=== PATIENT | male | born 1965 | race Caucasian/White ===

== ENCOUNTER 2020-11-16 02:34 | Emergency (ER) | payer OTHER ==
[2020-11-16] MEDS ORDERED: OXYMETAZOLINE 0.05% NASL SPRAY 1 SPRAY BOTTLE NASAL STA (02:39)
[2020-11-16 02:43] VITALS: RESP 16; TEMP 97.8
[2020-11-16] MEDS ORDERED: TRANEXAMIC ACID 1,000 MG in SODIUM CHLORIDE 0.9% 100 ML IVPB ONE (03:02)
[2020-11-16 03:33] LABS: Basophils % (A) 0 %; Eosinophils # (A) 0.1 k/uL (0-0.7); Eosinophils % (A) 1 %; HCT 31.5 % (39.0-53.0); HGB 10.8 gm/dL (13.0-17.5); Lymphocytes # (A) 1.8 k/uL (1.0-4.8); Lymphocytes % (A) 21 %; MCHC 34.3 g/dL (31.0-37.0); MCV 96.1 fL (80.0-100.0); Mean Platelet Volume 8.1; Monocytes # (A) 0.6 k/uL (0-1.0); Monocytes % (A) 7 %; Neutrophils # (A) 6.2 k/uL (1.3-7.7); Neutrophils % (A) 70 %; Platelet Count 248 k/uL (150-450); RBC 3.28 m/uL (4.30-5.90); RDW 13.1 % (11.5-15.5); WBC 8.9 k/uL (3.8-10.6)
[2020-11-16 03:44] LABS: African American GFR (CKD) >90 (>60 ml/min/1.73 sqM); Anion Gap 6 mmol/L; Blood Urea Nitrogen 12 mg/dL (9-20); Carbon Dioxide 24 mmol/L (22-30); Chloride 107 mmol/L (98-107); Glucose 116 mg/dL (74-99); Non-African American GFR(CKD) >90 (>60 ml/min/1.73 sqM); Potassium 3.7 mmol/L (3.5-5.1); Sodium 137 mmol/L (137-145)
[2020-11-16 03:45] LABS: INR 0.9 (<1.2); Partial Thromboplastin Time 22.4 sec (22.0-30.0); Prothrombin Time 9.8 sec (9.0-12.0)
--- NOTE | 2020-11-16 03:53 | ED ---
ENT HPI - General Chief complaint: ENT Stated complaint: Nosebleed Time Seen by Provider: 11/16/20 02:39 Source: patient, EMS Mode of arrival: EMS Limitations: no limitations - History of Present Illness Initial comments: This patient has a 54-year-old man who presents to be evaluated for epistaxis. The patient has had issues related to epistaxis going back couple of weeks with some intermittent small episodes. 2 days ago he had a more sustained episode, went to an urgent care, where he reportedly had cautery. The bleeding recurred and then was referred to one of the [facility] emergency departments where he had a balloon tamponade placed. This controlled the bleeding, but it did recur a couple of hours ago. The patient tried to stop things with pressure but it continued to bleed. He states that all of the bleeding was coming anterior to the balloon. He has only had bleeding from the right naris. There is no posterior bleeding. Patient denies symptoms of anemia. MD complaint: epistaxis -: days(s) Location: nose Severity: moderate Severity scale (1-10): 0 Consistency: constant Improves with: none Worsens with: none - Related Data Previous Rx's Medication Instructions Recorded cloNIDine HCL [Catapres] 0.1 mg PO Q8H #9 tab 11/16/20 Allergies Allergy/AdvReac Type Severity Reaction Status Date / Time No Known Allergies Allergy Verified 11/16/20 03:10 Review of Systems ROS Statement: Those systems with pertinent positive or pertinent negative responses have been documented in the HPI. ROS Other: All systems not noted in ROS Statement are negative. Constitutional: Denies: fever, chills, weakness Eyes: Denies: eye pain ENT: Reports: epistaxis Respiratory: Denies: cough, dyspnea Cardiovascular: Denies: chest pain, palpitations, orthopnea, syncope Gastrointestinal: Denies: abdominal pain, nausea, vomiting Neurological: Denies: headache, weakness Hematological/Lymphatic: Denies: easy bleeding General Exam Limitations: no limitations General appearance: alert, in no apparent distress Head exam: Present: atraumatic, normocephalic Eye exam: Present: normal appearance. Absent: scleral icterus, conjunctival injection ENT exam: Present: normal oropharynx, mucous membranes moist, other (Balloon tamponade on the right naris. No active bleeding) Respiratory exam: Present: normal lung sounds bilaterally. Absent: respiratory distress, wheezes, rales, rhonchi, stridor Cardiovascular Exam: Present: regular rate, normal rhythm, normal heart sounds. Absent: systolic murmur, diastolic murmur, rubs, gallop Neurological exam: Present: alert Skin exam: Present: warm, dry, intact, normal color. Absent: rash Course Vital Signs 11/16/20 11/16/20 11/16/20 02:35 03:54 07:54 Temperature 97.8 F Pulse Rate 92 91 89 Respiratory 16 16 16 Rate Blood Pressure 134/94 138/90 139/79 O2 Sat by Pulse 96 96 99 Oximetry Medical Decision Making - Medical Decision Making The patient did have resolution of bleeding just prior to arrival in the emergency department. When I see the patient, there is a rapid Rhino balloon that is intact in the right naris. There is no posterior bleeding. Given that the patient has had a number of bleeds in recent days blood counts are checked and are not significantly different than the labs he had yesterday which showed hemoglobin of 11. Patient is observed with no recurrence and stable for discharge with follow-up ENT physician - Lab Data Result diagrams: 11/16/20 03:24 11/16/20 03:24 Lab Results 11/16/20 11/16/20 11/16/20 Range/Units 03:24 03:24 03:24 WBC 8.9 (3.8-10.6) k/uL RBC 3.28 L (4.30-5.90) m/uL Hgb 10.8 L (13.0-17.5) gm/dL Hct 31.5 L (39.0-53.0) % MCV 96.1 (80.0-100.0) fL MCH 33.0 (25.0-35.0) pg MCHC 34.3 (31.0-37.0) g/dL RDW 13.1 (11.5-15.5) % Plt Count 248 (150-450) k/uL MPV 8.1 Neutrophils % 70 % Lymphocytes % 21 % Monocytes % 7 % Eosinophils % 1 % Basophils % 0 % Neutrophils # 6.2 (1.3-7.7) k/uL Lymphocytes # 1.8 (1.0-4.8) k/uL Monocytes # 0.6 (0-1.0) k/uL Eosinophils # 0.1 (0-0.7) k/uL Basophils # 0.0 (0-0.2) k/uL PT 9.8 (9.0-12.0) sec INR 0.9 (<1.2) APTT 22.4 (22.0-30.0) sec Sodium 137 (137-145) mmol/L Potassium 3.7 (3.5-5.1) mmol/L Chloride 107 (98-107) mmol/L Carbon Dioxide 24 (22-30) mmol/L Anion Gap 6 mmol/L BUN 12 (9-20) mg/dL Creatinine 0.69 (0.66-1.25) mg/dL Est GFR (CKD-EPI)AfAm >90 (>60 ml/min/1.73 sqM) Est GFR (CKD-EPI)NonAf >90 (>60 ml/min/1.73 sqM) Glucose 116 H (74-99) mg/dL Calcium 9.0 (8.4-10.2) mg/dL Disposition Clinical Impression: Epistaxis Disposition: HOME SELF-CARE Condition: Good Instructions (If sedation given, give patient instructions): Nosebleed (ED) Prescriptions: cloNIDine HCL [Catapres] 0.1 mg PO Q8H #9 tab Is patient prescribed a controlled substance at d/c from ED?: No Referrals: Leslie Arteaga DO [Primary Care Provider] - 1-2 days Fabrice Nelson MD [STAFF PHYSICIAN] - 1-2 days
[2020-11-16] MEDS ORDERED: LORazepam 1 MG TAB PO STA (04:37)
[2020-11-16] MEDS ORDERED: cloNIDine HCL 0.2 MG TAB PO STA (05:07)
[2020-11-16 07:55] VITALS: BP 139/79; PULSE 89
== END 2020-11-16 07:54 | disposition home or self-care (01) ==
LOC: EC 02:34
DX: R04.0 Epistaxis (principal)
CPT/HCPCS: 36415; 80048; 85025; 85610; 85730; 96374; 99284